=== PATIENT | male | born 1965 | race African-American/Black ===

== ENCOUNTER 2019-10-28 01:55 | Emergency (ER) | payer OTHER, MEDICAID ==
[~2019-10-28] VITALS: Ht 185.4 cm; Wt 98.0 kg
[2019-10-28 02:15] VITALS: BP 126/76
== END 2019-10-28 03:03 | disposition left against medical advice (07) ==
LOC: ER 01:55
DX: R53.1 Weakness (principal); Z53.21 Procedure and treatment not carried out due to patient leaving prior to being seen by health care provider